=== PATIENT | female | born 1945 | race Hispanic/Latino ===

== ENCOUNTER 2024-01-08 10:35 | Emergency (ER) | payer OTHER ==
[~2024-01-08] VITALS: Ht 152.4 cm; Wt 45.4 kg
[2024-01-08 11:51] LABS: BASOPHILS # (AUTO) 0.03 K/uL (0.00-0.20); BASOPHILS % (AUTO) 0.2 % (0.0-5.0); EOSINOPHILS # (AUTO) 0.03 K/uL (0.00-0.70); EOSINOPHILS % (AUTO) 0.2 % (0.0-8.0); LYMPHOCYTES # (AUTO) 0.9 K/uL (1.0-4.8); LYMPHOCYTES % (AUTO) 6.7 % (21.0-51.0); MEAN CORPUSCULAR HEMOGLOBIN 26.6 pg (27.0-33.0); MEAN CORPUSCULAR VOLUME 80.5 fL (79-99); MONOCYTES # (AUTO) 0.8 K/uL (0.1-1.0); MONOCYTES % (AUTO) 6.1 % (3.0-13.0); NEUTROPHILS # (AUTO) 11.9 K/uL (1.8-7.7); NEUTROPHILS % (AUTO) 86.1 % (40.0-77.0); PLATELET COUNT (AUTO) 408 K/uL (130-400); WHITE BLOOD COUNT (AUTO) 13.9 K/uL (4.8-10.8)
[2024-01-08 11:59] LABS: POTASSIUM 3.9 mmol/L (3.5-5.1)
[2024-01-08] MEDS: 0.9%NACL 1000ML 1,000 ML IV ONE (13:13)
[2024-01-08 15:20] LABS: APPEARANCE,URINE CLEAR (CLEAR); BILIRUBIN,URINE NEGATIVE (NEGATIVE); COLOR,URINE YELLOW (YELLOW); GLUCOSE, URINE (UA) NEGATIVE (NEGATIVE); KETONES,URINE 5 mg/dL (NEGATIVE); LEUKOCYTE ESTERASE ,URINE 250 Leu/uL (NEGATIVE); NITRATE,URINE NEGATIVE (NEGATIVE); OCCULT BLOOD,URINE MODERATE (NEGATIVE); PH,URINE 6.5 (5.0-8.0); PROTEIN,URINE 20 mg/dL (NEGATIVE)
[2024-01-08 15:29] LABS: ADD UA MICROSCOPIC YES
[2024-01-08 15:33] LABS: BACTERIA,URINE RARE /HPF (None Seen); MUCUS,URINE RARE LPF (None Seen); RBC,URINE 26-50 /HPF (0-1); SQUAMOUS EPITHELIAL CELL,UR RARE /HPF (0-2)
[2024-01-08] MEDS ORDERED: AMOX1TAB16 PO (15:46)
[2024-01-08] MEDS ORDERED: CIPOTIC AD (15:46)
[2024-01-08 15:53] VITALS: BP 138/62; PULSE 98; RESP 16; O2SAT 97
[2024-01-08] MEDS: AMOX/CLAV 875/125MG TAB PO ONE (15:53)
== END 2024-01-08 15:58 | disposition home or self-care (01) ==
LOC: EDH 10:35
DX: H60.92 Unspecified otitis externa, left ear (principal); M25.562 Pain in left knee; N39.0 Urinary tract infection, site not specified; E11.65 Type 2 diabetes mellitus with hyperglycemia; E87.1 Hypo-osmolality and hyponatremia
CPT/HCPCS: 99284; 96360; 80048; 85025; 87088; 82948; 81001; 36415; 73562; J7030